=== PATIENT | female | born 1970 | race African-American/Black ===

== ENCOUNTER 2017-07-26 09:57 | Emergency (ER) | payer OTHER, SELFPAY ==
[2017-07-26 10:44] LABS: #Basophils 0.1 thou/uL (0.0-0.2); #Eosinphils 0.1 thou/uL (0.0-0.7); #Lymphocytes 0.9 thou/uL (1.20-3.40); #Monocytes 0.3 thou/uL (0.11-0.59); #Neutrophils 2.1 thou/uL (1.40-6.50); %Basophils 2.2 % (0.0-1.0); %Eosinophils 3.8 % (0.0-10.0); %Lymphocytes 26.3 % (21.0-51.0); %Monocytes 7.5 % (0.0-10.0); Hematocrit 37.9 % (36.0-47.0); Mean Platelet Volume 7.7 fL (7.4-10.4); Red Blood Cell (RBC) Count 3.83 mill/uL (4.20-5.40); White Blood Cell (WBC) Count 3.5 thou/uL (4.8-10.8)
[2017-07-26 11:07] LABS: ALT (SGPT) 12 U/L (8-55); AST (SGOT) 15 U/L (5-34); Alkaline Phosphatase 53 U/L (40-150); Anion Gap 12 mmol/L (10-20); BUN (Urea Nitrogen) 16 mg/dL (7.0-18.7); Bilirubin, Total 0.3 mg/dL (0.2-1.2); Calc. Creatinine Clearance 0 mL/min (70-130); Calcium 8.6 mg/dL (7.8-10.44); Carbon Dioxide 23 mmol/L (22-29); Chloride 108 mmol/L (98-107); Estimated GFR-MDRD Greater than 90; Globulin 2.6 g/dL (2.4-3.5); Lipase 21 U/L (8-78); Protein, Total 6.3 g/dL (6.0-8.3)
[2017-07-26 11:21] LABS: Bilirubin Small (Negative); Blood, Urine Large (Negative); Glucose, Urine (Dipstick) Negative (Negative); Ketone, Urine Trace mg/dL (Negative); Nitrite Negative (Negative); Protein, Urine (Dipstick) Trace mg/dL (Neg-Trace)
[2017-07-26 11:24] LABS: Bacteria/HPF None Seen HPF (None Seen); Hyaline Casts/LPF 0-3 HYALINE CAST LPF (0-3 Hyaline); RBC/HPF GREATER THAN 50-TNTC HPF (0-3); WBC/HPF 0-3 HPF (0-3)
--- NOTE | 2017-07-26 11:32 | RAD ---
ABDOMEN TWO VIEWS CHEST ONE VIEW: History: 46-year-old female with diffuse abdominal pain. FINDINGS: Heart size is normal. Minimal chronic vertically oriented linear and parenchymal changes in the left base retrocardiac region. Scattered gas and fecal material is noted in the colon as well as some ga s within nondilated small bowel loops with a few scattered small air fluid levels. No evidence for f ree intraperitoneal air. IMPRESSION: Scattered gas and fecal material in the colon with scattered gas in nondilated small bowel with a fe w nonspecific scattered air fluid levels without free air or overt calculus or other acute process. Minimal vertically oriented chronic linear and parenchymal changes in the left retrocardiac region. POS: [facility]
[2017-07-26] MEDS ORDERED: Ketorolac Tromethamine 30 MG/ML VIAL ONE (12:05)
== END 2017-07-26 15:22 | disposition home or self-care (01) ==
LOC: ERS 09:57
DX: R10.32 Left lower quadrant pain (principal); F17.210 Nicotine dependence, cigarettes, uncomplicated
CPT/HCPCS: 36415; 74022; 80053; 81003; 81015; 83690; 85025; 96374; 99406; J1885

== ENCOUNTER 2019-03-22 15:30 | Observation (INO) | payer SELFPAY ==
[2019-03-22 17:05] LABS: #Eosinphils 0.1 thou/uL (0.0-0.7); #Lymphocytes 0.9 thou/uL (1.20-3.40); #Monocytes 0.5 thou/uL (0.11-0.59); #Neutrophils 4.4 thou/uL (1.40-6.50); %Basophils 0.6 % (0.0-1.0); %Eosinophils 1.7 % (0.0-10.0); %Monocytes 8.1 % (0.0-10.0); %Neutrophils 74.6 % (42.0-75.0); Hemoglobin 11.2 g/dL (12.0-16.0); Mean Corpuscular HGB CONC 32.3 g/dL (32.0-36.0); Mean Corpuscular Hemoglobin 28.6 pg (27.0-31.0); Mean Corpuscular Volume 88.5 fL (78.0-98.0); Mean Platelet Volume 8.3 fL (7.4-10.4); Platelet Count 198 thou/uL (130-400); RBC Distribution Width 14.4 % (11.5-14.5); Red Blood Cell (RBC) Count 3.92 mill/uL (4.20-5.40); White Blood Cell (WBC) Count 5.9 thou/uL (4.8-10.8)
[2019-03-22 17:28] LABS: ALT (SGPT) 9 U/L (8-55); AST (SGOT) 14 U/L (5-34); Alkaline Phosphatase 59 U/L (40-150); Anion Gap 14 mmol/L (10-20); BUN (Urea Nitrogen) 9 mg/dL (7.0-18.7); Bilirubin, Total 0.5 mg/dL (0.2-1.2); CK (CPK) 136 U/L (29-168); Calc. Creatinine Clearance 0 mL/min (70-130); Calcium 8.4 mg/dL (7.8-10.44); Carbon Dioxide 21 mmol/L (22-29); Chloride 106 mmol/L (98-107); Estimated GFR-MDRD Greater than 90; Globulin 2.3 g/dL (2.4-3.5); Glucose 78 mg/dL (70-105); Potassium 3.5 mmol/L (3.5-5.1); Protein, Total 6.3 g/dL (6.0-8.3); Sodium 137 mmol/L (136-145)
--- NOTE | 2019-03-22 18:09 | PDOC.FPRHP ---
- History of Present Illness Chief Complaint: Syncope History of Present Illness: 48 yo F with no PMH presents to the ED for syncope. Witness by family, present in room. Patient attributes this event to "heat exhaustion" as she has been outside this weekend and doesn't drink enough water. She was sitting on the porch and felt hot, stood up and started to walk inside when she felt weak then vision blacked out. Family member caught her before she fell. Family reports she "came to" nearly immediately after this. Denies any pain, N/V, chest pain, palpitations, SOB, dizziness, headache. Reports weakness. She has walked to bathroom in ED without assistance without difficulty, reports only mild weakness with this. First time syncope. No hx CAD, arrythmia, HTN. No family history of this. PCP in [place] ED Course: EKG unremarkable - Allergies/Adverse Reactions Allergies Allergy/AdvReac Type Severity Reaction Status Date / Time No Known Drug Allergies Allergy Verified 03/22/19 19:34 - History PMHx: None PSHx: c-sectionx1, tubal ligation, hernia repair FHx: None Social: Denies alcohol, drug use. Smokes 7-8 cigs/day for 5 years. - Review of Systems General: denies: fever/chills, fatigue Eyes: denies: vision changes ENT: denies: nasal congestion Respiratory: denies: cough, shortness of breath Cardiovascular: denies: chest pain, palpitation, edema Gastrointestinal: denies: nausea, vomiting, diarrhea, abdominal pain Genitourinary: denies: incontinence, dysuria Skin: denies: rashes, lesions Musculoskeletal: denies: pain, swelling Neurological: reports: syncope, weakness. denies: numbness, seizure - Vital signs BP: 145/78, Pulse: 76, Resp: 18, O2 sat: 100 on RA, Weight 56.7 kg - Physical Exam Constitutional: NAD HEENT: normocephalic and atraumatic, PERRLA, EOMI, grossly normal hearing, MMM, oropharynx clear Heart: RRR, normal S1/S2, no murmurs/rubs/gallops, pulses present, no edema Lungs: CTAB, no respiratory distress, good air movement, no wheezing Abdomen: soft, non-tender, bowel sounds present Musculoskeletal: normal structure, normal tone Neurological: no focal deficit Skin: no rash/lesions, good turgor, capillary refill <2 seconds Heme/Lymphatic: no unusual bruising or bleeding Psychiatric: normal mood and affect FMR H&P: Results - Labs Result Diagrams: 03/22/19 16:55 03/22/19 16:55 Lab results: WBC 5.9 thou/uL (4.8-10.8) 03/22/19 16:55 Hgb 11.2 g/dL (12.0-16.0) L 03/22/19 16:55 Hct 34.7 % (36.0-47.0) L 03/22/19 16:55 MCV 88.5 fL (78.0-98.0) 03/22/19 16:55 Plt Count 198 thou/uL (130-400) 03/22/19 16:55 Neutrophils % 74.6 % (42.0-75.0) 03/22/19 16:55 Sodium 137 mmol/L (136-145) 03/22/19 16:55 Potassium 3.5 mmol/L (3.5-5.1) 03/22/19 16:55 Chloride 106 mmol/L (98-107) 03/22/19 16:55 Carbon Dioxide 21 mmol/L (22-29) L 03/22/19 16:55 BUN 9 mg/dL (7.0-18.7) 03/22/19 16:55 Creatinine 0.71 mg/dL (0.6-1.1) 03/22/19 16:55 Glucose 78 mg/dL (70-105) 03/22/19 16:55 Calcium 8.4 mg/dL (7.8-10.44) 03/22/19 16:55 Total Bilirubin 0.5 mg/dL (0.2-1.2) 03/22/19 16:55 AST 14 U/L (5-34) 03/22/19 16:55 ALT 9 U/L (8-55) 03/22/19 16:55 Alkaline Phosphatase 59 U/L (40-150) 03/22/19 16:55 Creatine Kinase 136 U/L (29-168) 03/22/19 16:55 Serum Total Protein 6.3 g/dL (6.0-8.3) 03/22/19 16:55 Albumin 4.0 g/dL (3.5-5.0) 03/22/19 16:55 FMR H&P: A/P - Problem List (1) Syncope Current Visit: No Status: Acute Code(s): R55 - SYNCOPE AND COLLAPSE (2) Tobacco abuse Current Visit: No Status: Acute Code(s): Z72.0 - TOBACCO USE (3) Cocaine abuse Current Visit: No Status: Acute Code(s): F14.10 - COCAINE ABUSE, UNCOMPLICATED (4) Marijuana abuse Current Visit: No Status: Acute Code(s): F12.10 - CANNABIS ABUSE, UNCOMPLICATED - Plan 48 yo F with no PMH presents for a witnessed single episode of syncope and is admitted for further observation. Syncope - Ddx includes vasovagal vs orthostatic vs arrythmia vs structural. Patient reports dehydration as cause though Cr and vital signs not reflective of this. No electryolyte abnormalities, event was witness with no concern for seizure. Could consider CTA if patient becomes tachypneic, tachycardic, complains of pain. - Labs all wnl - initial trop neg, will trend one more - EKG NSR, continue cardiac monitoring overnight - echo pending - patient tolerating PO intake well, no need for IVF at this time Elevated BP - No h/o HTN - will monitor and consider starting antihypertensive if remains elevated Normocytic anemia - Hgb 11.2, pt did not endorse history of anemia, will discuss further with patient in am Polysubstance abuse - tobacco use -nicotine patch ordered, encourage cessation - denied drug use, Urine drug screen + cocaine and marijuana Code: FULL Diet: Regular Ppx: SCDs Dispo: admit to telemetry for observation, expected stay <48 hours Addendum - Attending - Attending Attestation Date/Time: 03/22/19 2689 I personally evaluated the patient and discussed the management with Dr. Watson I agree with the History, Examination, Assessment and Plan documented above with any addition or exceptions noted below - 48 yo F with no PMH presents to the ED for syncope. She was sitting on the porch and felt hot, stood up and started to walk inside when she felt weak then vision blacked out. Family member caught her before she fell. Family reports she "came to" nearly immediately after this. Denies any pain, N/V, chest pain, palpitations, SOB, dizziness, headache. Reports weakness. She has walked to bathroom in ED without assistance without difficulty, reports only mild weakness with this. First time syncope. No hx CAD, arrythmia, HTN. No family history of this. PMH/PSH/Meds/SH reviewed and agree with resident's documentation. Afebrile VSS Exam repeated by me and agree iwth resident's findings. EKG- NSR; no ST changes. Trop I <0.010 x 2. UDS- (+) cocaine and MJ. A/P: 1) Syncope- possibly due to dehydration in combination with drug use. Now improved. WIll monitoe overnight and check echo in AM.
[2019-03-22 18:17] LABS: Bilirubin Negative (Negative); Blood, Urine Negative (Negative); Clarity CLEAR (Clear); Glucose, Urine (Dipstick) Negative (Negative); Leukocyte Negative (Negative); Nitrite Negative (Negative); Protein, Urine (Dipstick) Negative (Neg-Trace); Urobilinogen 0.2 mg/dL (0.2-1.0)
[2019-03-22 18:28] LABS: Amphetamine Not Detected (NotDetected); Barbiturates Screen Not Detected (NotDetected); Benzodiazepine Screen Not Detected (NotDetected); Cocaine Metabolite Screen Detected (NotDetected); Medtox Control Line Valid? VALID (VALID); Medtox Reader # READER 1; Methadone Not Detected (NotDetected); Methamphetamine Not Detected (NotDetected); Opiate Screen Not Detected (NotDetected); Oxycodone Screen Not Detected (NotDetected); Phencyclidine (PCP) Not Detected (NotDetected); THC/Cannabinoid Screen Detected (NotDetected); Tricyclic Screen Not Detected (NotDetected)
[2019-03-22] MEDS ORDERED: Calcium Carbonate 500 MG ChewTAB PO PRN (18:58)
[2019-03-22] MEDS ORDERED: Acetaminophen 325 MG TAB PO PRN (18:58)
[2019-03-22] MEDS ORDERED: Senokot S 8.6-50 MG TAB PO PRN (18:58)
[2019-03-22 19:34] VITALS: BMI 22.7
[2019-03-22] MEDS ORDERED: Nicotine 14 MG PATCH TD SCH (20:00)
[2019-03-22 20:05] LABS: Troponin I Less than 0.010 ng/mL (< 0.028)
[2019-03-22 23:34] LABS: Troponin I Less than 0.010 ng/mL (< 0.028)
--- NOTE | 2019-03-23 06:31 | PDOC.FM ---
- Subjective Subjective: NAEO. Patient reports that she feels better but still feels weak. Denies any further syncopal episodes since admission. Reports 9/10 epigastric pain on exam but was resting comfortably in bed and ordering breakfast at the conclusion of the interview. States that the pain comes and goes & has reportedly been ongoing since her abdominal hernia repair in 2013. - Objective MAR Reviewed: Yes Vital Signs & Weight: Vital Signs (12 hours) Temp Pulse Resp BP BP BP BP 03/23/19 04:11 98.4 F 73 16 129/83 03/22/19 23:19 98.9 F 75 16 120/83 03/22/19 20:48 155/90 H 143/92 H 156/92 H 03/22/19 19:15 99.2 F 66 16 149/83 H Pulse Ox 03/23/19 04:11 96 03/22/19 23:19 99 03/22/19 20:48 03/22/19 19:15 99 Weight Weight 52.844 kg Result Diagrams: 03/22/19 16:55 03/22/19 16:55 EKG Reviewed by me: Yes Radiology Reviewed by me: Yes Phys Exam - Physical Examination Constitutional: NAD HEENT: moist MMs, sclera anicteric Neck: supple, full ROM Respiratory: no wheezing, no rales Cardiovascular: RRR, no significant murmur Gastrointestinal: positive bowel sounds mild distention but soft with TTP in epigastrium Musculoskeletal: no edema, pulses present Neurological: non-focal, normal sensation, moves all 4 limbs Psychiatric: normal affect, A&O x 3 Skin: no rash, normal turgor Dx/Plan (1) Cocaine abuse Code(s): F14.10 - COCAINE ABUSE, UNCOMPLICATED Status: Chronic (2) Marijuana abuse Code(s): F12.10 - CANNABIS ABUSE, UNCOMPLICATED Status: Chronic (3) Syncope Code(s): R55 - SYNCOPE AND COLLAPSE Status: Acute (4) Tobacco abuse Code(s): Z72.0 - TOBACCO USE Status: Chronic - Plan Plan: 48YOF with no PMH who presented to the ED for a witnessed single episode of syncope. Syncope - Uncertain etiology at this point; however, ddx includes vasovagal vs orthostatic vs arrythmia vs. structural vs. polysubstance use. Patient reported dehydration on admission; however, Cr and VS were not reflective of this. And unlikely to be seizure as event was witnessed and no seizure-like activity was noted. - EKG NSR since admission & trops WNLs x3 - echo pending to r/o any structural cardiac abnormalities that could have contributed to this Elevated BP w/o diagnosis of HTN - No reported h/o HTN but initial BPs elevated. Last 2 measurements WNLs - Will continue to monitor and consider starting antihypertensive if remains elevated Normocytic anemia - Hgb 11.2 on admission. Will likely need an outpatient workup to determine etiology. Polysubstance abuse - Patient reported tobacco use & denied any illicit drug use but UDS + for cocaine and marijuana. Polysubstance use could have precipitated this event. Will encourage cessation. Code: FULL Diet: Regular DVT PPx: SCDs Dispo: Likely d/c home later today after echo is obtained with close outpatient follow-up. Addendum - Attending - Attending Attestation Date/Time: 03/23/19 8710 I personally evaluated the patient and discussed the management with Dr. Narvaez. I agree with the History, Examination, Assessment and Plan documented above with any addition or exceptions noted below. The patient has done well overnight. Her pain is improved during my visit. Echo is pending. will likely d/c this afternoon.
[2019-03-23] MEDS ORDERED: Acetaminophen 500 MG TAB PO PRN (06:53)
[2019-03-23 07:55] VITALS: BP 131/74; TEMP 99
--- NOTE | 2019-03-24 01:20 | DIS ---
DATE OF ADMISSION: 03/22/2019 DATE OF DISCHARGE: 03/23/2019 RESIDENT: Rivka Narvaez MD ADMITTING ATTENDING: Mala Slade MD DISCHARGE ATTENDING: Julia Walker MD. CONSULTS: None. PROCEDURES: Echocardiogram on 03/23/2019. PRIMARY DIAGNOSES: 1. Syncope, suspected to be secondary to polysubstance use. 2. Cocaine abuse. 3. Marijuana abuse. 4. Normocytic anemia. SECONDARY DIAGNOSIS: Tobacco use disorder. DISCHARGE MEDICATIONS: 1. Tylenol 1 g q.6 hours p.r.n. for headache, fever, pain. 2. Tums 1000 mg p.o. q.4 hours p.r.n. for heartburn, indigestion. 3. Senokot-S 2 tablets p.o. b.i.d. p.r.n. for constipation. DISCONTINUED MEDICATIONS: None. HOSPITAL COURSE: The patient is a 48-year-old female with no significant past medical history, who presented to the emergency department with a chief complaint of a syncopal episode that was reportedly witnessed by her family earlier on the date of presentation. It was noted that the patient did not have any head trauma as her family caught her during her fall. Initial workup in the emergency department included basic lab work including a CBC, CMP, UDS, and UA which were notable for a normocytic anemia with a hemoglobin of 11.2, trace ketonuria , and a UDS positive for cocaine and marijuana. Her EKG showed normal sinus rhythm and troponins were trended x3, all of which were less than 0.010. However, to rule our any cardiac etiologies, the patient was monitored closely on telemetry overnight and an echocardiogram was obtained the next morning. The patient's rhythm remained in sinus overnight and the patient had no further syncopal episodes for the duration of her hospital stay. Thus, after the echocardiogram was obtained the following morning, the patient was cleared for discharge home in stable condition with close follow-up with her primary care provider within 2 weeks of discharge. DISPOSITION: Stable. DISCHARGE INSTRUCTIONS: 1. Location: Home. 2. Diet: Regular diet. 3. Activity: As tolerated. No restrictions. 4. Follow-up: The patient was instructed to follow up with her primary care provider within 2 weeks of discharge. Job ID: [id number] [facility]
--- NOTE | 2019-03-28 20:48 | EKG ---
Test Reason : Blood Pressure : / mmHG Vent. Rate : 074 BPM Atrial Rate : 074 BPM P-R Int : 166 ms QRS Dur : 076 ms QT Int : 406 ms P-R-T Axes : 062 004 022 degrees QTc Int : 450 ms Normal sinus rhythm with sinus arrhythmia Septal infarct , age undetermined Abnormal ECG Confirmed by MITRA Kwon, JB ([id number]), editorial assistant SHAILESH TORRES ([id number]) on 03/28/2019 8:47:58 PM Referred By: Confirmed By:JB MANRIQUEZ M.D.
== END 2019-03-23 13:10 | disposition home or self-care (01) ==
LOC: ERS 15:30 → 2SW 19:19
PROVIDERS: ADMIT Family Medicine; ATTEND Family Medicine
DX: R55 Syncope and collapse (principal); F14.10 Cocaine abuse, uncomplicated; F12.10 Cannabis abuse, uncomplicated; D64.9 Anemia, unspecified; F17.210 Nicotine dependence, cigarettes, uncomplicated; R03.0 Elevated blood-pressure reading, without diagnosis of hypertension
CPT/HCPCS: 36415; 80053; 80306; 81003; 82550; 84484; 85025; 93005; 93306; G0378

== ENCOUNTER 2022-04-17 00:44 | Emergency (ER) | payer SELFPAY ==
[2022-04-17] MEDS ORDERED: Morphine 4 MG/ML VIAL ONE (02:34)
[2022-04-17] MEDS ORDERED: Ondansetron PF 4 MG/2 ML Vial ONE (02:34)
[2022-04-17 02:47] LABS: #Basophils 0.1 thou/uL (0.0-0.2); #Eosinphils 0.1 thou/uL (0.0-0.7); #Lymphocytes 1.3 thou/uL (1.20-3.40); #Monocytes 0.4 thou/uL (0.11-0.59); #Neutrophils 2.9 thou/uL (1.40-6.50); %Basophils 1.5 % (0.0-1.0); %Eosinophils 2.9 % (0.0-10.0); %Lymphocytes 27.2 % (21.0-51.0); %Monocytes 8.3 % (0.0-10.0); %Neutrophils 60.1 % (42.0-75.0); Hemoglobin 15.3 g/dL (12.0-16.0); Mean Corpuscular HGB CONC 31.9 g/dL (32.0-36.0); Mean Platelet Volume 9.4 fL (7.4-10.4); Platelet Count 139 thou/uL (130-400); RBC Distribution Width 12.5 % (11.5-14.5); Red Blood Cell (RBC) Count 4.49 mill/uL (4.20-5.40); White Blood Cell (WBC) Count 4.8 thou/uL (4.8-10.8)
[2022-04-17 03:04] LABS: ALT (SGPT) 31 U/L (8-55); AST (SGOT) 31 U/L (5-34); Albumin 4.2 g/dL (3.5-5.0); Alkaline Phosphatase 92 U/L (40-110); Anion Gap 16 mmol/L (10-20); BUN (Urea Nitrogen) 18 mg/dL (9.8-20.1); Bilirubin, Total 0.3 mg/dL (0.2-1.2); Calc. Creatinine Clearance 0 mL/min (70-130); Calcium 9.6 mg/dL (7.8-10.44); Carbon Dioxide 28 mmol/L (22-29); Chloride 104 mmol/L (98-107); Estimated GFR 89; Globulin 2.8 g/dL (2.4-3.5); Glucose 90 mg/dL (70-105); Lipase 44 U/L (8-78); Potassium 4.4 mmol/L (3.5-5.1); Sodium 144 mmol/L (136-145)
== END 2022-04-17 06:10 | disposition home or self-care (01) ==
LOC: ERS 00:44
DX: K59.00 Constipation, unspecified (principal); K31.84 Gastroparesis; Z87.891 Personal history of nicotine dependence
CPT/HCPCS: 36415; 74177; 80053; 83605; 83690; 84484; 85025; 96361; 96374; 96375; J2270; J2405